=== PATIENT | male | born 1940 | race American Indian/Alaskan Native ===

== ENCOUNTER 2016-11-19 10:52 | Day surgery (SDC) | payer MEDICARE ==
[2016-11-18 16:28] LABS: Hematocrit 21.6 % (35.5-45.6); Hemoglobin 6.9 gm/dl (11.8-15.2)
[2016-11-19] MEDS ORDERED: TYLENOL PO ONE (11:12)
[2016-11-19] MEDS ORDERED: BENADRYL PO ONE (11:12)
[2016-11-19] MEDS ORDERED: NACL 0.9% 250ML 250 ML IV ONE (11:13)
[2016-11-19 16:28] VITALS: BP 108/60
== END 2016-11-19 16:49 | disposition home or self-care (01) ==
LOC: OPU 10:52
PROVIDERS: ATTEND Internal Medicine Hematology
DX: D64.9 Anemia, unspecified (principal)
CPT/HCPCS: 36415; 36430; 85014; 85018; 86850; 86900; 86901; 86920; J7050; P9016